=== PATIENT | male | born 1945 | race Caucasian/White ===

== ENCOUNTER 2018-10-22 05:36 | Day surgery (SDC) | payer MEDICARE, BC ==
[2018-10-16 16:45] VITALS: BMI 27.5
[2018-10-22] VITALS (13 sets, daily range): BP systolic 118–156; BP diastolic 60–77; PULSE 54–78; RESP 15–20; Ht 170.2 cm; Wt 79.6 kg
[~2018-10-22] VITALS: Ht 170.2 cm; Wt 79.6 kg
[2018-10-22] MEDS ORDERED: ATEN-51 PO (06:43)
[2018-10-22] MEDS ORDERED: CLON-379 PO (06:44)
[2018-10-22] MEDS ORDERED: GELATIN SIZE 100 SPONGE ONE (06:45)
[2018-10-22] MEDS ORDERED: ROPIVACAINE 0.5 % 30 ML VIAL ONE ×2 (06:45→07:19)
[2018-10-22] MEDS ORDERED: POVIDONE IODINE 10% 28.4 GM OINT ONE (06:45)
[2018-10-22] MEDS ORDERED: THROMBIN 5000 UNIT VIAL ONE (06:45)
[2018-10-22] MEDS ORDERED: LOSA100T15 PO (06:45)
[2018-10-22] MEDS ORDERED: POLYMYXIN/BACITRACIN 1L IRRIG ONE (06:45)
[2018-10-22] MEDS ORDERED: HYDR50TA3 PO (06:45)
[2018-10-22] MEDS ORDERED: SIMV80TA PO (06:46)
[2018-10-22] MEDS ORDERED: SERT50TA PO (06:46)
--- NOTE | 2018-10-22 06:58 | PREAC ---
Date/Time of Note Date/Time of Note DATE: 10/22/18 TIME: 06:57 Anesthesia Eval and Record Evaluation Time Pre-Procedure Interview DATE: 10/22/18 TIME: 06:57 Age 72 Sex male NPO: 8 hrs Preoperative diagnosis RT toe fracture Planned procedure Rt toe Arthrodesis Past Medical History Past Medical History: Includes Cardio: HTN, Dyslipidemia GI: Obesity Surgery & Anesthesia Issues No known issue Meds Anticoagulation: No Beta Guilherme within 24 hr: Yes Reported Medications Simvastatin* (Zocor*) 80 Mg Tablet, 80 MG PO QHS, #30 TAB 10/22/18 Sertraline Hcl* (Zoloft*) 50 Mg Tablet, 50 MG PO DAILY, #30 TAB 10/22/18 Losartan Potassium* (Losartan Potassium*) 100 Mg Tablet, 100 MG PO DAILY, TAB 10/22/18 Hydrochlorothiazide* (Hydrochlorothiazide*) 50 Mg Tab, 50 MG PO DAILY, #30 TAB 10/22/18 Clonidine Hcl* (Clonidine Hcl*) 0.1 Mg Tab, 0.1 MG PO QHS PRN for ELEVATED BLOOD PRESSURE, TAB 10/22/18 Atenolol* (Atenolol*) 25 Mg Tablet, 25 MG PO DAILY, #30 TAB 10/22/18 Meds reviewed: Yes Allergies Coded Allergies: No Known Allergy (Unverified , 10/22/18) Allergies Reviewed: Yes Labs/Studies Labs Reviewed: Reviewed by anesthesiologist test: N/A Studies: ECG Pre-procedure Exam Airway: Adequate mouth opening, Adequate thyromental dist Mallampati: Mallampati II Teeth: Normal Lung: Normal Heart: Normal ASA Physical Status ASA physical status: 3 Emergency: None Planned Anesthetic General/MAC: LMA Planned Pain Management Single shot nerve block, Parenteral pain med Pre-operative Attestations Prior to commencing anesthesia and surgery, the patient was re-evaluated, there was verification of: *The patient's identity *The results of appropriate recent lab work and preoperative vital signs *The above evaluation not changing prior to induction *Anesthetic plan, risk benefits, alternative and complications discussed with patient/family; questions answered; patient/family understands, accepts and wishes to proceed. JEF COMBS MD Oct 22, 2018 06:58
[2018-10-22] MEDS ORDERED: SOD CHLORIDE 0.9% 1,000 ML IV SCH (07:05)
[2018-10-22] MEDS ORDERED: FENTAnyl 50 MCG/ML VIAL ONE (07:13)
[2018-10-22] MEDS ORDERED: MIDAZOLAM 1 MG/ML 2 ML INJ ONE (07:13)
[2018-10-22] MEDS ORDERED: OXYCODONE/ACETAMINOPHEN (5/325) TAB PO PRN ×2 (07:30)
[2018-10-22] MEDS ORDERED: morphine 2 MG INJ IV PRN (07:30)
[2018-10-22] MEDS ORDERED: ONDANSETRON 4 MG INJ IV PRN (07:30)
[2018-10-22] MEDS ORDERED: POLYMYXIN/BACITRACIN 1L IRRIG IRR ONE (08:20)
[2018-10-22] MEDS ORDERED: METHYLENE BLUE 1% 10 ML INJ ONE (08:42)
[2018-10-22] MEDS ORDERED: ETOMIDATE 20 MG INJ ONE (10:25)
[2018-10-22] MEDS ORDERED: LIDOCAINE 2% (SDV) 5 ML INJ ONE (10:25)
[2018-10-22] MEDS ORDERED: ROCURONIUM 50 MG INJ ONE (10:25)
[2018-10-22] MEDS ORDERED: CEFAZOLIN 1 GM INJ ONE (10:26)
[2018-10-22] MEDS ORDERED: ONDANSETRON 4 MG INJ ONE (10:27)
--- NOTE | 2018-10-22 10:53 | SIPON ---
Date/Time of Note Date/Time of Note DATE: 10/22/18 TIME: 10:52 Operative Report Preoperative Diagnosis Right Hallux Rigidus Postoperative Diagnosis Right Hallux Rigidus Operation/Procedure Performed Right Hallux MTP joint arthrodesis Surgeon see signature line construction management assistant Juan C Mckeon MD Anesthesia: general Estimated blood loss: minimal Transfusion Required none Specimen none Grafts/Implants 2 4.0mm cannulated screws Complications none MARYELLEN STEPHENS MD Oct 22, 2018 10:53
--- NOTE | 2018-10-22 10:53 | PAC ---
Date/Time of Note Date/Time of Note DATE: 10/22/18 TIME: 10:53 Post-Anesthesia Notes Post-Anesthesia Note Last documented vital signs Vital Signs Date Temp Pulse Resp B/P (MAP) Pulse Ox O2 O2 Flow FiO2 Time Delivery Rate 10/22/18 98.2 54 18 156/71 96 05:40 (99) Activity: WNL Respiratory function: WNL Cardiovascular function: WNL Mental status: Baseline Pain reasonably controlled: Yes Hydration appropriate: Yes Nausea/Vomiting absent: Yes Comments BP:112/56, P:68, spo2:100%, T:98,7 JEF COMBS MD Oct 22, 2018 10:53
[2018-10-22] MEDS ORDERED: FENTAnyl 50 MCG/ML VIAL IV PRN (11:00)
[2018-10-22] MEDS ORDERED: HYDROmorphONE 1 MG/5 ML IV SYRINGE IV PRN ×2 (11:00)
[2018-10-22] MEDS ORDERED: MEPERIDINE 25 MG INJ IV PRN (11:00)
[2018-10-22] MEDS ORDERED: NALOXONE (0.4 MG/ML) INJ IV PRN (11:00)
[2018-10-22] MEDS ORDERED: DIPHENHYDRAMINE 50 MG INJ IV PRN (11:00)
--- NOTE | 2018-10-22 15:08 | OPR ---
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 POSTOPERATIVE DIAGNOSIS: Severe degenerative arthritis of the right great toe metatarsophalangeal al int. OPERATIONS PERFORMED: 1. Arthrodesis, right great toe MTP joint with two 4.0 AO cannulated screws. 2. Extensive synovectomy MTP joint. 3. Use of fluoroscopy to verify position and alignment of the great toe, guide pins and screws. 4. Short-leg cast. SURGEON: Maryellen Evans MD INSTITUTIONAL RESEARCH COORDINATOR: Juan C Mckeon MD ANESTHESIA: General with popliteal block. TOURNIQUET TIME: 107 minutes. DESCRIPTION OF PROCEDURE: The patient was taken to the operating room and placed in supine position. Satisfactory general anesthesia was administered after popliteal block was given and 2 grams Ancef intravenously. The right foot was prepped and draped in usual manner. A dorsomedial incision was ma de. Neurovascular bundles were elevated out of the field. The capsule was then opened longitudinall y and peeled off circumferentially. There were large osteophytes and spurs throughout the MTP joint and the metatarsal head and on the proximal phalanx. These were removed with rongeur. Once all of t he osteophytes had been removed, sequential drills were used to drill the proximal phalanx shaft unti l the biggest drill hole was placed then male portion of the Hennessy reamers were used to make an appro priate hole in the proximal phalanx. Once this was done, we freed up the capsule in the plantar surf dannie of the metatarsal head then I used a saw to contour the metatarsal head. We put the toe on flat plate, put in 1 thumb breadth above the floor and adjusted pronation, supination and valgus. We then marked with methylene blue the rotation as well as position we wanted to fuse it in. Using the saw, we then contoured the metatarsal head until it was contoured appropriately. We used a power rasp ar ound the proximal phalanx along the metatarsal head to contour it further. I then used the Hennessy jasson richard again in female portion to contour the metatarsal head until it fit into a cup and cone position. The toe was placed in appropriate position. The metatarsal head was placed in the proximal phalanx , temporarily fixated with 0.045 K-wire. The guide pin from the 4.0 AO cannulated screw set was then placed from plantar, medial to plantar lateral across the MTP joint. It looked good in AP and later al x-rays. A second guide pin was placed from distal, medial and proximal phalanx dorsal to the late ral aspect of metatarsal head. I checked this again and excellent position was noted. The holes wer e partially drilled and then 4.0 AO cannulated screws were inserted. Excellent fixation was obtained . Guide pins were removed. The final fluoroscopic views showed excellent position and alignment of the toe and the screws. The tourniquet was released. Bleeders were coagulated. Wounds irrigated wi th antibiotic solution. Capsule was closed with a running 3-0 PDS. The skin was closed with 5-0 shaneka ck nylon. Saphenous nerve block was done with 0.5% ropivacaine. Compression dressing was applied as well as short-leg cast in neutral position. Interprocedure sponge count was correct. The patient t olerated procedure well. AUTO TIRE RECAPPER ORTHOPEDIC SURGEON: During the procedure, an orthopedic surgeon was used at my request. T he health care assistant helped with retraction, but most importantly, the health care assistant inserted the guide pins for the screws while I held the toe reduced in the exact position. Then, the health care assistant helped put the sc rews in. Without a skilled orthopedic surgeon assisting, this could not have been done and should be compensated appropriately. Dictated By: MARYELLEN MITCHELL/SUE Conf#: [id number] DID#: [id number]
== END 2018-10-22 14:00 | disposition home or self-care (01) ==
LOC: SDS 05:36
PROVIDERS: ATTEND Orthopaedic Surgery
DX: M13.871 Other specified arthritis, right ankle and foot (principal); I10 Essential (primary) hypertension; E78.5 Hyperlipidemia, unspecified
CPT/HCPCS: 28750; 73630; C1713; J0690; J2175; J2250; J2405; J2795; J3010